=== PATIENT | male | born 1950 | race Caucasian/White ===

== ENCOUNTER 2017-08-12 12:15 | Emergency (ER) | payer OTHER ==
[~2017-08-12] VITALS: Ht 177.8 cm; Wt 93.0 kg
[~2017-08-12 12:15] MED LIST: CARVEDILOL3.125 MG PO; COPEGUS200 MG PO; CRESTOR20 MG PO; GABAPENTIN100 MG PO; HYDROCODONE PO; INCIVEK375 MG PO; LANTI SQ; PEGASYS180 MCG/0. SQ; ZES20 PO; [UNRECOGNIZED DRUG - OTHER] PO
[2017-08-12 14:04] VITALS: BP 149/84
== END 2017-08-12 14:04 | disposition home or self-care (01) ==
LOC: ED 12:15
DX: E11.649 Type 2 diabetes mellitus with hypoglycemia without coma (principal); R41.82 Altered mental status, unspecified; I10 Essential (primary) hypertension; Z79.899 Other long term (current) drug therapy; Z79.4 Long term (current) use of insulin
CPT/HCPCS: 82962; 83880

== ENCOUNTER 2018-04-11 08:51 | Inpatient (IN) | payer OTHER ==
[~2018-04-11] VITALS: Ht 177.8 cm; Wt 95.0 kg
[~2018-04-11 08:51] MED LIST changes: +GABAPENTIN100 M2; -GABAPENTIN100 MG PO
[2018-04-11 08:54] VITALS: Ht 177.8 cm; Wt 95.0 kg
[2018-04-11 09:44] LABS: CALCIUM 9.2 mg/dL (8.5-10.1); CARBON DIOXIDE 24.7 mmol/L (21-32); CREATININE SERUM 1.8 mg/dL (0.7-1.3); POTASSIUM SERUM 4.7 mmol/L (3.5-5.1)
[2018-04-11 09:48] LABS: ALBUMIN 4.1 g/dL (3.4-5.0); BILIRUBIN TOTAL 0.8 mg/dL (0.20-1.00); TOTAL PROTEIN, SERUM 7.5 g/dL (6.4-8.2)
[2018-04-11 09:57] LABS: BASOPHIL % 0.2 % (0-2); PLATELET COUNT 143 x10^3mcL (130-400); RED CELL DISTRIBUTION WIDTH 13.8 % (11.5-14.5)
[2018-04-11] MEDS ORDERED: PRAVACHOL20 MG PO (10:19)
[2018-04-11] MEDS ORDERED: HYDRALAZINE HY100 MG PO (10:20)
[2018-04-11] MEDS ORDERED: COREG12.5 MG PO (10:20)
[2018-04-11] MEDS ORDERED: NOR10 PO (10:23)
[2018-04-11] MEDS ORDERED: VITAMIN-D1000 IU PO (10:24)
[2018-04-11] MEDS ORDERED: LANTUS SOLOS100 U/M1 SC (10:24)
[2018-04-11] MEDS ORDERED: ZESTRIL40 MG PO (10:24)
[2018-04-11] MEDS ORDERED: MAGNESIUM OXID400 MG PO (10:25)
[2018-04-11 10:43] LABS: CHOLESTEROL/HDL RATIO 3.3; MAGNESIUM 2.3 mg/dL (1.8-2.4); PHOSPHOROUS 3.3 mg/dL (2.5-4.9)
[2018-04-11 10:45] LABS: T3 TOTAL 1.17 ng/mL
[2018-04-11 10:47] LABS: FREE T4 0.91 ng/dL (0.76-1.46); FREE THYROXINE INDEX 2.7 ug/dL (1.4-4.5); T4(THYROXINE) 8.1 ug/dL (4.7-13.3)
[2018-04-11 11:26] LABS: microscopic required? NO
[2018-04-11 11:33] LABS: urine erythrocyte NEGATIVE (NEGATIVE)
[2018-04-11 11:39] LABS: AMPHETAMINE QUAL UR NONE DETECTED (NEG <=1000)
[2018-04-11 13:14] VITALS: BP 172/80
[2018-04-11 20:53] VITALS: BP 141/81
[2018-04-12 05:49] VITALS: BP 154/84
[2018-04-12 06:35] LABS: CALCIUM 8.6 mg/dL (8.5-10.1); CARBON DIOXIDE 20.6 mmol/L (21-32); CREATININE SERUM 1.6 mg/dL (0.7-1.3); MAGNESIUM 2.1 mg/dL (1.8-2.4); PHOSPHOROUS 3.5 mg/dL (2.5-4.9); POTASSIUM SERUM 4.4 mmol/L (3.5-5.1)
[2018-04-12 06:37] LABS: BASOPHIL % 0.3 % (0-2); PLATELET COUNT 135 x10^3mcL (130-400); RED CELL DISTRIBUTION WIDTH 13.9 % (11.5-14.5)
[2018-04-12] MEDS ORDERED: PRA20 PO (07:48)
[2018-04-12] MEDS ORDERED: COREG12.5 MG PO (07:49)
[2018-04-12] MEDS ORDERED: BAY PO (07:50)
[2018-04-12] MEDS ORDERED: PSYLLIUM0.4 GM PO (07:51)
[2018-04-12 10:34] VITALS: BP 151/79
[2018-04-12 17:26] VITALS: BP 147/74
[2018-04-12 21:24] VITALS: BP 151/77
[2018-04-13 05:28] VITALS: BP 156/80
[2018-04-13 06:34] LABS: CALCIUM 8.2 mg/dL (8.5-10.1); CARBON DIOXIDE 23.9 mmol/L (21-32); CREATININE SERUM 1.4 mg/dL (0.7-1.3); MAGNESIUM 2.1 mg/dL (1.8-2.4); POTASSIUM SERUM 4.1 mmol/L (3.5-5.1)
[2018-04-13 06:41] LABS: BASOPHIL % 0.2 % (0-2); RED CELL DISTRIBUTION WIDTH 13.6 % (11.5-14.5)
[2018-04-13 06:53] LABS: PLATELET COUNT 129 x10^3mcL (130-400)
[2018-04-13 08:43] VITALS: BP 142/72
[2018-04-13 12:59] VITALS: BP 142/72
== END 2018-04-13 14:15 | disposition home or self-care (01) | DRG 393 ==
LOC: ED 08:51 → DU 10:03 → MU 10:03 → DU 13:09 → MU 04-12 08:09
PROVIDERS: Emergency Medicine; Family Medicine; Internal Medicine Gastroenterology
PROC: 0DB98ZX Excision of Duodenum, Via Natural or Artificial Opening Endoscopic, Diagnostic (ICD-10-PCS; principal; 2018-04-12 11:30)
PROC: 0DB68ZX Excision of Stomach, Via Natural or Artificial Opening Endoscopic, Diagnostic (ICD-10-PCS; 2018-04-12 11:30)
PROC: 0DBG8ZX Excision of Left Large Intestine, Via Natural or Artificial Opening Endoscopic, Diagnostic (ICD-10-PCS; 2018-04-12 11:30)
DX: K55.9 Vascular disorder of intestine, unspecified (principal); N17.0 Acute kidney failure with tubular necrosis; E11.51 Type 2 diabetes mellitus with diabetic peripheral angiopathy without gangrene; E11.42 Type 2 diabetes mellitus with diabetic polyneuropathy; E55.9 Vitamin D deficiency, unspecified; E87.8 Other disorders of electrolyte and fluid balance, not elsewhere classified; E78.5 Hyperlipidemia, unspecified; I25.10 Atherosclerotic heart disease of native coronary artery without angina pectoris; I10 Essential (primary) hypertension; Z91.14 Patient's other noncompliance with medication regimen
CPT/HCPCS: 43235; 45378; 83880; 84439; 87046; 87046-59; C9113; J0696; J1200; J1610; J2250; J2310; J3010; J3490; J7030; Q0092; Q9967